=== PATIENT | male | born 1990 | race Caucasian/White ===

== ENCOUNTER 2017-01-20 22:03 | Emergency (ER) | payer BC ==
[2017-01-20] MEDS ORDERED: NS 0.9% 1000 ML* 1,000 ML IV ONE (22:15)
[2017-01-20 22:29] LABS: Hematocrit 47 % (42-52); Hemoglobin 16.3 g/dl (14.0-18.0); Mean Corpuscular HGB Conc 35 g/dl (31-36); Mean Corpuscular Hemoglobin 30 pg (27-31); Mean Corpuscular Volume 87 fL (80-94); Mean Platelet Volume 9 um3 (7.4-10.4); Red Cell Distribution Width 14 % (10.5-15); White Blood Count 11.7 10^3/ul (3.5-10.8)
[2017-01-20] MEDS ORDERED: Iodixanol* (CONTRAST) 320 MG/ML 100 ML SDV IV ONE (22:31)
[2017-01-20 22:46] LABS: Albumin 5.2 g/dL (3.2-5.2); BUN/Creatinine Ratio 5.8 (8-20); Calcium 9.7 mg/dL (8.6-10.3); EGFR Non-African American 86.3 (>60); Globulin 2.9 g/dL (2-4); Potassium 3.4 mmol/L (3.5-5.0); Total Bilirubin 0.8 mg/dL (0.2-1.0); Total Protein 8.1 g/dL (6.4-8.9)
[2017-01-21 01:08] LABS: Urine Bacteria Absent (Absent); Urine Bilirubin Negative (Negative); Urine Glucose Negative (Negative); Urine Nitrite Negative (Negative)
[2017-01-21 01:13] LABS: Benzodiazepine Urine Screen None Detected (None Detect)
[2017-01-21] MEDS ORDERED: Lidocaine 2% 10 ML* VIAL INJ ONE (01:29)
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
[2017-01-21] MEDS ORDERED: Tetan/Diph/Pertus SYR(Tdap)* 0.5 ML SYR(BOOSTRIX) use SYR IM ONE (02:38)
[2017-01-21] MEDS ORDERED: Cephalexin CAP* 500 MG PO ONE (02:38)
[2017-01-21 03:00] VITALS: BP 106/51
--- NOTE | 2017-01-21 07:54 | RAD ---
Indication: Head injury. CT of the brain was performed without IV contrast. Ventricular structures are midline. No midline shift is noted. The extraction spaces are unremarkable. There is no evidence of intracranial mass or hemorrhage. No other high or low density lesions are identified. Mastoid air cells and paranasal sinuses are otherwise unremarkable. Left scalp debris and injury is noted. IMPRESSION: There is no evidence of intracranial mass or hemorrhage.
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
== END 2017-01-21 03:00 | disposition home or self-care (01) ==
LOC: ED 22:03
DX: F10.129 Alcohol abuse with intoxication, unspecified (principal); S01.91XA Laceration without foreign body of unspecified part of head, initial encounter; S81.819A Laceration without foreign body, unspecified lower leg, initial encounter; V89.2XXA Person injured in unspecified motor-vehicle accident, traffic, initial encounter; Y93.9 Activity, unspecified; Y92.9 Unspecified place or not applicable
CPT/HCPCS: 36415; 70450; 71260; 72125; 74177; 80053; 80307; 80320; 81003; 81015; 83605; 85025; 85610; 86850; 86900; 86901; 90471; 90715; 96374; 99283; A9270-GY; G0480; J2001; Q9967

== ENCOUNTER 2017-01-21 17:08 | Emergency (ER) | payer BC ==
[2017-01-21 17:19] VITALS: BP 133/93
[2017-01-21] MEDS ORDERED: Acetaminophen TAB* 325 MG PO ONE (20:29)
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
== END 2017-01-21 21:24 | disposition home or self-care (01) ==
LOC: ED 17:08
DX: S40.812A Abrasion of left upper arm, initial encounter (principal); S41.132A Puncture wound without foreign body of left upper arm, initial encounter; V86.59XA Driver of other special all-terrain or other off-road motor vehicle injured in nontraffic accident, initial encounter; Y93.9 Activity, unspecified; Y92.9 Unspecified place or not applicable
CPT/HCPCS: 99282; A9270-GY